=== PATIENT | female | born 1955 | race Caucasian/White ===

== ENCOUNTER → 2017-05-14 | Outpatient (CLI) | payer BC, OTHER | LOC: CIMAGING 08:47 | PROVIDERS: ATTEND Internal Medicine | DX: Z12.31 Encounter for screening mammogram for malignant neoplasm of breast (principal) | CPT/HCPCS: G0202 ==

== ENCOUNTER 2017-07-30 05:50 | Inpatient (IN) | payer BC, OTHER ==
--- NOTE | 2017-07-18 23:03 | GHP ---
[f rep st] HISTORY AND PHYSICAL DATE OF ADMISSION: 07/30/2017 CHIEF COMPLAINT: Right knee pain. HISTORY OF PRESENT ILLNESS: The patient is a 61-year-old female with a long history of right knee pa in worsening with use and with time despite multiple conservative measures. She wishes to have surge ry in order to resolve the problem. ALLERGIES: She is allergic to adhesives and cephalexin. CURRENT MEDICATIONS: Include insulin, bupropion, buspirone, cabergoline, citalopram, gabapentin, Arnulfo tus, liothyronine, lisinopril, metformin, NovoLog, simvastatin, Synthroid, and albuterol inhaler as n eeded. PAST MEDICAL HISTORY: Include diabetes, reflux, hypertension, and thyroid problems. PAST SURGICAL HISTORY: Includes a right knee arthroscopy, cholecystectomy, and a right shoulder surg es. SOCIAL HISTORY: She has never been a smoker, and she takes no alcohol. PHYSICAL EXAMINATION: EYES: Pupils equal, round, reactive to light. CHEST: Clear to auscultation. HEART: Regular rate and rhythm. ABDOMEN: Soft and nontender. EXTREMITIES: Right knee has a mil d varus deformity with some spilling noted to the medial compartment. She has an effusion to the kne e. IMAGING DATA: X-ray exam reveals significant osteoarthritic changes to the knee. PLAN: She is to be taken to the operating room where she is to undergo a right total knee arthroplas ty. /[id number]/MODL
[2017-07-30] MEDS ORDERED: ROPIVACAINE 0.2% 80 MG, EPINEPHrine 0.2 MG, KETOROLAC TROMETHAMINE 30 MG, morphINE 10 M... IU ONE (06:00)
[2017-07-30] MEDS ORDERED: TRANEXAMIC ACID 3,000 MG in NS 50 ML IRR ONE (06:00)
[2017-07-30] MEDS ORDERED: LR 1,000 ML IV SCH ×2 (06:00→09:30)
[2017-07-30] MEDS ORDERED: ACETAMINOPHEN 500 MG TAB PO ONE (06:00)
[2017-07-30] MEDS ORDERED: CLINDAMYCIN 900 MG/DEXTROSE 50 ML IV ONE (06:00)
[2017-07-30] MEDS ORDERED: LIDOCAINE 1% 2 ML INJ ONE (06:06)
[2017-07-30] MEDS ORDERED: LR 1,000 ML IV ONE (06:11)
[2017-07-30] MEDS ORDERED: LIDOCAINE 1% 2 ML INJ ID PRN (06:11)
[2017-07-30] MEDS ORDERED: THROMBIN (BOVINE) 5,000 UNIT VIAL TP ONE ×2 (06:37→08:07)
[2017-07-30] MEDS ORDERED: CALCIUM CHLORIDE 1 GM/10 ML INJ ONE ×2 (06:37→08:07)
[2017-07-30] MEDS ORDERED: BACITRACIN 50,000 UNITS/10 ML SYR IRR ONE (06:38)
[2017-07-30] MEDS ORDERED: POLYMYXIN B SULFATE 500,000 UNIT/10 ML SYR IRR ONE (06:38)
[2017-07-30] MEDS ORDERED: BUPIVACAINE/EPI 0.5% 30 ML SDV ONE (06:38)
[2017-07-30] MEDS ORDERED: TRANEXAMIC ACID 3,000 MG/50 ML BAG IRR ONE (06:39)
[2017-07-30] MEDS ORDERED: MIDAZOLAM 2 MG/2 ML VIAL IVP ONE (07:00)
--- NOTE | 2017-07-30 07:00 | PDANEPAE ---
ANE History of Present Illness Knee pain ANE Past Medical History - Cardiovascular History Hx Hypertension: Yes Hx Arrhythmias: No Hx Coronary Artery / Peripheral Vascular Disease: No Hx CHF / Valvular Disease: Yes Cardiovascular History Comment: ASYMPTOMATIC. HIGH CHOL. MURMUR. AORTIC VALVE DISORDER REGURG. NO CP - Pulmonary History Hx COPD: No Hx Asthma/Reactive Airway Disease: Yes Hx Recent Upper Respiratory Infection: No Hx Oxygen in Use at Home: No Hx Sleep Apnea: Yes Sleep Apnea Screening Result - Last Documented: Positive Pulmonary History Comment: ASTHMA- USE INHLER, TRIGGERS W/URI. DENIES SOB W STAIRS. 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 HYPOTHYROID. 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 ANXIETY - Cancer History Hx Cancer: No - Congenital Disorder History Hx Congenital Disorders: Yes Congenital History Comment: EXTRA THUMB BEN- REMOVED AT AGE 5 - GI History Hx Gastrointestinal Disorders: Yes Gastrointestinal History Comment: ACID REFLUX - Other Health History Other Health History: PAST LOW FERRITIN LEVEL - HAD IRON INFUSIONS LAST OCT 2016 - Chronic Pain History Chronic Pain: No - Surgical History Prior Surgeries: SPLEENECTOMY - TUMOR/HEANGIOMA. R KNEE ARTHROSCOPY. R SHOULDER 01/03/11. OTTO LAP. EBN THUMBS-EXTRA THUMB REM CHILD ANE Review of Systems Review of Systems: - Exercise capacity METS (RN): 4 METS ANE Patient History - Allergies Allergies/Adverse Reactions: cephalexin [Cephalexin] Allergy (Intermediate, Verified 05/22/16 18:41) Rash adhesive tape Allergy (Mild, Verified 07/02/17 16:06) Rash HAYFEVER Allergy (Mild, Uncoded 05/22/16 18:41) Other-Enter Comments - Home Medications Home medications: home medication list seen and reviewed Home Medications: Calcium Carb W/Vit D [Calcium Carb W/Vit D 500/200 (*)] 500 mg PO DAILY [Last Taken 07/20/17] Herbals/Supplements -Info Only 1 ea PO DAILY 02/29/16 [Last Taken 07/20/17] Multivitamins [Multivitamin (*)] 1 each PO DAILY 02/29/16 [Last Taken 07/20/17] Upperco-3 Fatty Acids [Fish Oil 1000 mg (*)] 2,000 mg PO BID 02/29/16 [Last Taken 07/20/17] Simvastatin 10 mg PO DAILY 02/29/16 [Last Taken 07/30/17] FEXOFENADINE HCL 180 mg PO DAILY 07/02/17 [Last Taken Unknown] Gabapentin [Neurontin 100 MG (*)] 100 mg PO HS 07/02/17 [Last Taken 07/29/17] Ibuprofen [Motrin (*)] 800 mg PO TID 07/02/17 [Last Taken 07/20/17] Insulin Aspart Novolog 70/30 [Novolog Mix 70/30 (*)] 1 - 5 units SC TID [Last Taken 07/29/17] Insulin Glargine [Lantus 100 UNITS/ML (*)] 30 units SC HS 07/02/17 [Last Taken 07/29/17] Lansoprazole [Prevacid] 15 mg PO DAILY AT 6PM 07/02/17 [Last Taken 07/29/17] Mirtazapine [Remeron] 22.5 mg PO HS 07/02/17 [Last Taken 07/29/17] - NPO status NPO Since - Liquids (Date): 07/29/17 NPO Since - Liquids (Time): 21:00 NPO Since - Solids (Date): 07/29/17 NPO Since - Solids (Time): 19:00 - Anes Hx Anes Hx: no prior problems - Smoking Hx Smoking Status: Never smoked - Family Anes Hx Family Hx Anesthesia Complications: NONE ANE Labs/Vital Signs - Vital Signs Blood Pressure: 157/83 Heart Rate: 82 Respiratory Rate: 16 O2 Sat (%): 95 Height: 162.56 cm Weight: 77.111 kg ANE Physical Exam - Airway Neck exam: FROM Mallampati Score: Class 1 Mouth exam: normal dental/mouth exam - Pulmonary Pulmonary: no respiratory distress, clear to auscultation - Cardiovascular Cardiovascular: regular rate and rhythym - ASA Status ASA Status: III ANE Anesthesia Plan Anesthesia Plan: MAC, spinal Regional Anesthesia: adductor canal FNB
[2017-07-30] MEDS ORDERED: fentaNYL 100 MCG/2 ML INJ ONE (07:05)
[2017-07-30] MEDS ORDERED: PROPOFOL/EMULSION 500 MG/50 ML BOTTLE IV ONE (07:06)
--- NOTE | 2017-07-30 07:09 | PDHPUP ---
History & Physical Update H&P update statement: This history and physical update is based on an assessment of the patient which was completed after admission or registration (within 24 hours), but prior to the surgery/procedure. H&P update: H&P reviewed & patient examined, no change in patient's condition since H&P completed
[2017-07-30] MEDS ORDERED: ONDANSETRON 4 MG/2 ML VIAL ONE (07:57)
[2017-07-30] MEDS ORDERED: ROPIVACAINE HCL 150 MG/30 ML INJ ONE (08:45)
[2017-07-30] MEDS ORDERED: PROPOFOL 200 MG/20 ML VIAL ONE (08:51)
[2017-07-30] MEDS ORDERED: HYDROmorphONE/DILAUDID 1 MG/ML INJ IVP PRN (09:09)
[2017-07-30] MEDS ORDERED: ONDANSETRON 4 MG/2 ML VIAL IVP PRN ×2 (09:09→09:14)
[2017-07-30] MEDS ORDERED: NALOXONE HCL 0.4 MG/ML INJ IVP PRN (09:09)
[2017-07-30] MEDS ORDERED: fentaNYL 100 MCG/2 ML INJ IVP PRN (09:09)
[2017-07-30] MEDS ORDERED: LACTULOSE 20 GM/30 ML UDCUP PO PRN (09:14)
[2017-07-30] MEDS ORDERED: PROMETHAZINE HCL 25 MG SUPPR PR PRN (09:14)
[2017-07-30] MEDS ORDERED: TAPENTADOL HCL 50 MG TAB PO PRN (09:14)
[2017-07-30] MEDS ORDERED: PROMETHAZINE HCL 25 MG/ML INJ IVP PRN (09:14)
[2017-07-30] MEDS ORDERED: MAGNESIUM HYDROXIDE 30 ML UDCUP PO PRN (09:14)
[2017-07-30] MEDS ORDERED: ONDANSETRON DISINTEGRATING 4 MG TAB PO PRN (09:14)
[2017-07-30] MEDS ORDERED: METOCLOPRAMIDE 10 MG/2 ML VIAL IVP PRN (09:14)
[2017-07-30] MEDS ORDERED: diphenhydrAMINE 25 MG CAP PO PRN (09:14)
[2017-07-30] MEDS ORDERED: POLYETHYLENE GLYCOL 3350 17 GM PKT PO PRN (09:14)
[2017-07-30] MEDS ORDERED: DIPHENOXYLATE/ATROPINE LOMOTIL 1 TAB PO PRN (09:14)
[2017-07-30] MEDS ORDERED: TEMAZEPAM 15 MG CAP PO PRN (09:14)
[2017-07-30] MEDS ORDERED: BISACODYL 10 MG SUPP PR PRN (09:14)
--- NOTE | 2017-07-30 09:14 | POSTOPPROG ---
Post Op Note Date of Operation: 07/30/17 Surgeon: Rosana Pacheco Rate Clerk: abena Anesthesiologist: ester Anesthesia: Epidural, IV Sedation Pre-op Diagnosis: r knee oa Procedure: r tkr Inf/Abcess present in the surg proc area at time of surgery?: No Depth: Deep Incisional (Fascial) EBL: 100-500
--- NOTE | 2017-07-30 09:29 | POSTANESTH ---
Post Anesthetic Evaluation Cardiovascular Status: Normal, Stable Respiratory Status: Normal, Stable Level of Consciousness/Mental Status: Can Participate in Eval Pain Control: Adequate, Prn Tx Ordered Nausea/Vomiting Control: Adequate, Prn Tx Ordered Complications Possibly Related to Anesthesia: None Noted (Adductor cannal block done in recovery.)
--- NOTE | 2017-07-30 10:33 | GOP ---
[f rep st] OPERATIVE REPORT DATE OF OPERATION: 07/30/2017 SURGEON: Rosana Pacheco MD ANESTHESIA: Epidural nerve block plus IV sedation. PREOPERATIVE DIAGNOSIS: Right knee osteoarthritis. POSTOPERATIVE DIAGNOSIS: Right knee osteoarthritis. PROCEDURE PERFORMED: Right total knee arthroplasty. FINDINGS: INDICATIONS: This is a 61-year-old female with a long history of right knee pain worsening with use and with time, despite multiple conservative measures to include viscus supplementation, anti-inflamm atories and bracing. She wishes to have surgery in order to resolve the problem. DESCRIPTION OF PROCEDURE: The patient was brought to the operating room after the right side had bee n identified as the correct side by the patient, nurse and physician. Once in the operating room, sukhjinder bear was given an epidural nerve block plus an adductor nerve block, per surgeon's request. Once placed , she was placed supine on the operating room table. She had a tourniquet placed around the upper po rtion of the right thigh, with the right lower extremity sterilely prepped and draped in the usual fa shion using GSI solution. Once prepped and draped, the limb was exsanguinated and the tourniquet inf lated to 250 mmHg. A linear incision was made on the anterior portion of the knee 1 handbreadth above and below the james lla. With sharp dissection, carried down through the skin and subcutaneous layers, with bleeding con trolled using electrocautery. A medial parapatellar incision was made through the extensor mechanism , with the patella brought to the side but not everted. The knee was brought up to 90 degrees of fle xion. The ACL as well as the medial and lateral meniscus were removed. The first custom made jig wa s placed on the distal end of the femur, noted to fit securely and lug holes were drilled for that co mponent. This was then removed and the second jig was placed on the distal end of the femur. Drill holes were made in the distal end of the femur and the end cutting block was pinned into place. The jig was removed with the cutting block left in place. An oscillating saw was used to remove the dist al end of the femur until achieving a flat cut. The prior pin holes that had been made in the distal end of the femur had pins placed back into them. A third jig was placed on the distal cut surface o f the femur. It was pinned into place, and the anterior and posterior cuts, as well as an anterior c hamfer cut, were made. Lug holes were drilled in the distal end of the femur. The jig was removed. The next jig was placed within the lug holes associated with the distal end of the femur. Once held securely in place, the posterior chamfer cuts were made. The femoral trial was put into place. The knee was then able to achieve full extension. Therefore, the trial was removed. Attention was turn ed to the tibia. The knee was brought into maximal flexion with the tibia subluxed anteriorly. The feet of the tibial cutting guide were marked with a pen placed on the proximal portion of the tibia. The areas were at tached to the cartilage. The cartilage was removed using curette until achieving contact with the maci ne. The jig was then placed back onto the proximal tibia and noted to have good alignment, with good posterior slope. It was then pinned into place. An oscillating saw was then used to remove the pro ximal portion of the tibia. The tibial trial as well as the femoral trial were put back in place. T he knee was able to achieve full extension. Therefore, the trials were removed. The knee was zacarias t to maximal flexion. The custom made sizing jig was put into place. It was pinned into place and n oted to fit securely. A medullary guide was placed within the tibial jig. The medullary drill was p assed through this. The drill was removed and the keel punch passed through the trial. The trial wa s then completely removed. The knee was brought to full extension. The patella was then everted and held in place with towel clamps. It was measured to be 20 mm in thickness. The oscillating saw was used to remove the posterior portion of the patella, leaving 15 mm of bone. Multiple sizes were tri aled on the cut surface of bone. Noted that a 29 mm patella was seen to fit best. Therefore, lug ho les were drilled for a 29 mm patella. All cut surfaces of bone were then thoroughly irrigated with a n antibiotic solution using pulsatile lavage while cement was being mixed. Once cement was doughy, i t was placed in the proximal portion of the tibia and a custom made conformist tibial component was p ut into place, with excess cement removed using a Ecru elevator. Cement was then placed on the post erior skids of the custom made conformist femoral component, with cement placed on the distal anterio r portion of the bone. The femoral component was put into place and excess cement removed using a Fr eer elevator. Trial liners were placed on the tibial tray and the knee was brought to full extension in order to pressurize cement. Cement was then placed on the posterior portion of the patella and a 29 mm patellar button was clamped into place with excess cement removed using a Ecru elevator. Onc e cement had hardened, clamps were removed from the patella and it was noted to align well with the f emoral component. Any excess cement that was found was removed using combination of osteotome and ro ngeur. Multiple trials were placed in the tibial tray. Once finding adequate stability with good ex tension, a size A lateral tibial insert was placed in the lateral portion of the tibial tray and an 8 mm medial insert was put into the tibial tray. Once snapped into place, the tourniquet was deflated at 49 minutes. Bleeding was controlled using el ectrocautery. A joint cocktail had been injected in the posterior capsule along the periosteum of th e femur and the tibia. Tranexamic acid was then irrigated through the wound in order to help control bleeding. The wound was then closed using 0 Vicryl suture in a [id number]-[id number] type stitch for the extensor mechanism, with plasma gel placed intra-articularly. Zero Vicryl and 2-0 Vicryl suture were used to close the subcutaneous layers, with 30 mL of Marcaine infused around the skin incision. And a 3-0 V-Loc suture in a running subcuticular stitch was used to close the skin. The wound was dress ed with Steri-Strips, Xeroform, 4x4s wrapped in Kerlix. The leg was completely undraped in the opera ting room, the tourniquet removed from the thigh and an Hermelindo wrap placed around the knee. The patient was then transferred onto a stretcher and sent to the recovery room in a good condition. TOURNIQUET TIME: 49 minutes. /[id number]/MODL
[2017-07-30] MEDS: ACETAMINOPHEN 325 MG TAB PO SCH ×2 (12:28→17:53)
[2017-07-30] MEDS: traMADol 50 MG TAB PO SCH ×2 (12:28→17:53)
[2017-07-30] MEDS: KETOROLAC 30 MG/1 ML SDV IVP SCH ×2 (12:28→17:51)
[2017-07-30] MEDS: INSULIN LISPRO 100 UNIT/ML SC SCH ×3 (13:44→18:05)
[2017-07-30] MEDS: oxyCODONE IR 5 MG TAB PO PRN ×3 (14:18→17:53)
[2017-07-30] MEDS ORDERED: VANCOMYCIN HCL/NORMAL SALINE 250 ML IV ONE (16:00)
[2017-07-30] MEDS ORDERED: INSULIN ASPART NovoLOG 70/30 100 UNITS/ML SYR SC SCH (16:00)
[2017-07-30] MEDS: busPIRone 15 MG TAB PO SCH ×2 (16:13→20:49)
[2017-07-30] MEDS: PANTOPRAZOLE SODIUM 40 MG TAB PO SCH (17:53)
[2017-07-30] MEDS: metFORMIN HCL 500 MG TAB PO SCH (17:53)
[2017-07-30] MEDS ORDERED: NON-FORMULARY NEW DRUG (Insulin Aspart [Novolog Flexpen] 0 UNIT) SQ SCH (18:00)
[2017-07-30] MEDS ORDERED: NON-FORMULARY NEW DRUG (Lansoprazole [Prevacid] 15 MG) PO SCH (18:00)
[2017-07-30] MEDS: FAMOTIDINE 20 MG TAB PO SCH (20:44)
[2017-07-30] MEDS: GABAPENTIN 100 MG CAP PO SCH (20:44)
[2017-07-30] MEDS: SENNOSIDES/DOCUSATE SODIUM TAB PO SCH (20:44)
[2017-07-30] MEDS: INSULIN GLARGINE 100 UNITS/ML SYRINGE SC SCH (20:46)
[2017-07-30] MEDS: FLUTICASONE NASAL 120 SPRAYS/16 GM MDI EACHNARE SCH (20:46)
[2017-07-30] MEDS: LIOTHYRONINE SODIUM 25 MCG TAB PO SCH (20:47)
[2017-07-30] MEDS: MIRTAZAPINE 15 MG TAB PO SCH (20:49)
[2017-07-30] MEDS ORDERED: NON-FORMULARY NEW DRUG (Mirtazapine [Remeron] 22.5 MG) PO SCH (21:00)
[2017-07-31] MEDS: traMADol 50 MG TAB PO SCH ×5 (00:24→23:17)
[2017-07-31] MEDS: KETOROLAC 30 MG/1 ML SDV IVP SCH ×5 (00:24→23:18)
[2017-07-31] MEDS: ACETAMINOPHEN 325 MG TAB PO SCH ×5 (00:24→23:17)
[2017-07-31 04:51] LABS: HEMATOCRIT 35.2 % (38.0-47.0); HEMOGLOBIN 11.9 g/dL (12.6-16.3)
[2017-07-31] MEDS: LEVOTHYROXINE 125 MCG TAB PO SCH (06:00)
[2017-07-31] MEDS: INSULIN LISPRO 100 UNIT/ML SC SCH ×3 (08:20→17:56)
[2017-07-31] MEDS: oxyCODONE IR 5 MG TAB PO PRN ×4 (08:20→20:32)
[2017-07-31] MEDS: buPROPion XL 150 MG TAB PO SCH (08:21)
[2017-07-31] MEDS: SENNOSIDES/DOCUSATE SODIUM TAB PO SCH ×2 (08:21→20:32)
[2017-07-31] MEDS: CITALOPRAM 20 MG TAB PO SCH (08:22)
[2017-07-31] MEDS: busPIRone 15 MG TAB PO SCH ×3 (08:22→22:20)
[2017-07-31] MEDS: CETIRIZINE 10 MG TAB PO SCH (08:22)
[2017-07-31] MEDS: FAMOTIDINE 20 MG TAB PO SCH ×2 (08:22→20:31)
[2017-07-31] MEDS: LIOTHYRONINE SODIUM 25 MCG TAB PO SCH ×2 (08:31→20:30)
[2017-07-31] MEDS: LISINOPRIL 20 MG TAB PO SCH (08:32)
[2017-07-31] MEDS: metFORMIN HCL 500 MG TAB PO SCH ×2 (08:32→18:20)
[2017-07-31] MEDS: PRAVASTATIN SODIUM 20 MG TAB PO SCH (08:32)
[2017-07-31] MEDS: RIVAROXABAN 10 MG TAB PO SCH (08:32)
[2017-07-31] MEDS: CYCLOBENZAPRINE 10 MG TAB PO PRN (09:41)
--- NOTE | 2017-07-31 14:25 | SOAPPROG ---
SOAP Progress Note Assessment/Plan: Assessment: Plan: doing well, as planned 07/31/17 14:24 Subjective: doing well pain controlled Objective: Vital Signs Temp Pulse Resp BP Pulse Ox 36.9 C 74 16 116/55 L 95 07/31/17 11:44 07/31/17 11:44 07/31/17 11:44 07/31/17 11:44 07/31/17 11:44 Laboratory Results 07/31/17 04:22 07/30/17 07/31/17 08/01/17 05:59 05:59 05:59 Intake Total 2225 Output Total 750 Balance 1475 dressing cdi, calf nt, NvI - Time Spent With Patient Time Spent With Patient: 15 - Pending Discharge Pending Discharge Within 24 Hours: No Pending Discharge Within 48 Hours: Yes Pending Discharge Date: 08/02/17 Pending Discharge Time: 11:00 ICD10 Worksheet Patient Problems: Problems Problem Status Onset Splenic mass Acute
--- NOTE | 2017-07-31 15:38 | ASMTCMCOM ---
CM Note CM Note Notes: Pt had planned surgery, has at home. PT rec [facility], pt agreeable and referral sent to [facility]. Date Signed: 07/31/2017 03:38 PM Electronically Signed By:NADER Lisa
[2017-07-31] MEDS: PANTOPRAZOLE SODIUM 40 MG TAB PO SCH (18:20)
[2017-07-31] MEDS: MIRTAZAPINE 15 MG TAB PO SCH (20:31)
[2017-07-31] MEDS: GABAPENTIN 100 MG CAP PO SCH (20:31)
[2017-07-31] MEDS: FLUTICASONE NASAL 120 SPRAYS/16 GM MDI EACHNARE SCH (22:22)
[2017-07-31] MEDS: INSULIN GLARGINE 100 UNITS/ML SYRINGE SC SCH (22:23)
[2017-08-01 05:01] LABS: HEMATOCRIT 34.2 % (38.0-47.0); HEMOGLOBIN 11.6 g/dL (12.6-16.3)
[2017-08-01] MEDS: ACETAMINOPHEN 325 MG TAB PO SCH ×2 (05:09→12:48)
[2017-08-01] MEDS: KETOROLAC 30 MG/1 ML SDV IVP SCH ×2 (05:10→12:48)
[2017-08-01] MEDS: traMADol 50 MG TAB PO SCH ×2 (05:10→10:33)
[2017-08-01] MEDS: LEVOTHYROXINE 125 MCG TAB PO SCH (05:11)
[2017-08-01 07:58] VITALS: RESP 16
[2017-08-01] MEDS: RIVAROXABAN 10 MG TAB PO SCH (08:51)
[2017-08-01] MEDS: FAMOTIDINE 20 MG TAB PO SCH (08:51)
[2017-08-01] MEDS: LISINOPRIL 20 MG TAB PO SCH (08:51)
[2017-08-01] MEDS: PRAVASTATIN SODIUM 20 MG TAB PO SCH (08:52)
[2017-08-01] MEDS: buPROPion XL 150 MG TAB PO SCH (08:52)
[2017-08-01] MEDS: busPIRone 15 MG TAB PO SCH (08:52)
[2017-08-01] MEDS: SENNOSIDES/DOCUSATE SODIUM TAB PO SCH (08:53)
[2017-08-01] MEDS: metFORMIN HCL 500 MG TAB PO SCH (08:53)
[2017-08-01] MEDS: oxyCODONE IR 5 MG TAB PO PRN ×3 (08:53→14:55)
[2017-08-01] MEDS: CETIRIZINE 10 MG TAB PO SCH (08:54)
[2017-08-01] MEDS: LIOTHYRONINE SODIUM 25 MCG TAB PO SCH (08:54)
[2017-08-01] MEDS: CITALOPRAM 20 MG TAB PO SCH (08:54)
[2017-08-01] MEDS: CYCLOBENZAPRINE 10 MG TAB PO PRN (10:34)
[2017-08-01 11:25] VITALS: BP 165/79; PULSE 88; TEMP 99; O2SAT 95
--- NOTE | 2017-08-01 12:02 | SOAPPROG ---
SOAP Progress Note Assessment/Plan: Assessment: Plan: d/c home today, with PT 07/31/17 14:24 08/01/17 12:01 Subjective: Had some severe pain this AM doing better now, feels ready to go home. Objective: Vital Signs Temp Pulse Resp BP Pulse Ox 37.2 C 88 16 165/79 H 95 08/01/17 11:14 08/01/17 11:14 08/01/17 11:14 08/01/17 11:14 08/01/17 11:14 Laboratory Results 08/01/17 04:40 07/31/17 08/01/17 08/02/17 05:59 05:59 05:59 Intake Total 2225 300 Output Total 750 600 Balance 1475 -300 Wound CDI, calf NT, Nvi - Time Spent With Patient Time Spent With Patient: 15 - Pending Discharge Pending Discharge Within 24 Hours: Yes Pending Discharge Within 48 Hours: No Pending Discharge Date: 08/02/17 Pending Discharge Time: 11:00 ICD10 Worksheet Patient Problems: Problems Problem Status Onset Splenic mass Acute
[2017-08-01] MEDS: INSULIN LISPRO 100 UNIT/ML SC SCH ×2 (12:04→12:46)
--- NOTE | 2017-08-01 12:41 | PDIAF ---
- Diagnosis Code Status: Full Code - Medication Management Discharge Medications: Medications to Continue on Transfer Calcium Carb W/Vit D [Calcium Carb W/Vit D 500/200 (*)] 500 mg PO DAILY [Last Taken 07/20/17] Herbals/Supplements -Info Only 1 ea PO DAILY 02/29/16 [Last Taken 07/20/17] Multivitamins [Multivitamin (*)] 1 each PO DAILY 02/29/16 [Last Taken 07/20/17] [place]-3 Fatty Acids [Fish Oil 1000 mg (*)] 2,000 mg PO BID 02/29/16 [Last Taken 07/20/17] Simvastatin 10 mg PO DAILY 02/29/16 [Last Taken 07/30/17] Cabergoline [Dostinex (*)] 0.5 mg PO MOFR@0800 #0 tab 03/08/16 [Last Taken 07/29] Citalopram [CeleXA 20 MG] 40 mg PO DAILY #0 tab 03/08/16 [Last Taken 07/30/17] Fluticasone Nasal [Flonase Nasal Pickerel] 2 sprays EACHNARE HS #0 mdi 03/08/16 [ Last Taken 07/29/17] Levothyroxine [Synthroid 125 mcg (*)] 125 mcg PO DAILY06 #0 tab 03/08/16 [Last Taken 07/30/17] Liothyronine Sodium [Cytomel 25 mcg (*)] 12.5 mcg PO BID #0 tab 03/08/16 [Last Taken Unknown] Lisinopril [Zestril 20 mg (*)] 20 mg PO DAILY #0 tab 03/08/16 [Last Taken ] buPROPion XL [Wellbutrin 150mg XL] 450 mg PO DAILY #0 tab 03/08/16 [Last Taken 07/30/17] busPIRone [Buspar (*)] 15 mg PO TID #0 tab 03/08/16 [Last Taken 07/30/17] metFORMIN HCL [Glucophage 500 mg (*)] 1,000 mg PO BIDMEAL #0 tab 03/08/16 [Last Taken 07/28/17] FEXOFENADINE HCL 180 mg PO DAILY 07/02/17 [Last Taken Unknown] Gabapentin [Neurontin 100 MG (*)] 100 mg PO HS 07/02/17 [Last Taken 07/29/17] Ibuprofen [Motrin (*)] 800 mg PO TID 07/02/17 [Last Taken 07/20/17] Insulin Glargine [Lantus 100 UNITS/ML (*)] 30 units SC HS 07/02/17 [Last Taken 07/29/17] Lansoprazole [Prevacid] 15 mg PO DAILY AT 6PM 07/02/17 [Last Taken 07/29/17] Mirtazapine [Remeron] 22.5 mg PO HS 07/02/17 [Last Taken 07/29/17] Insulin Aspart [Novolog Flexpen] 1 - 5 unit SQ TIDMEAL 07/30/17 [Last Taken Unknown] Rivaroxaban [Xarelto 10mg (*)] 10 mg PO DAILY #0 tab 08/01/17 [Last Taken Unknown] oxyCODONE IR [Oxycodone Ir (*)] 5 - 10 mg PO Q3HRS PRN tab 08/01/17 [Last Taken Unknown] traMADol [Ultram 50 mg (*)] 50 mg PO Q6HRS tab 08/01/17 [Last Taken Unknown] Discharge Medications: Refer to the Discharge Home Medication list for PRN reason. - Orders Services needed: Home Care, Physical Therapy Home Care Face to Face: I certify that this patient was under my care and that I had the required [id number] encounter meeting the encounter requirements on the discharge day. My findings support the fact that the patient is homebound as defined in Home Care Face to Face Continued: CMS Chapter 7 Medicare Benefits Manual 30.1.1 , The condition of the patient is such that there exists a normal inability to leave home and consequently, leaving home would require a considerable and taxing effort. Diet Recommendation: no restrictions on diet Diet Texture: Regular Texture Diet - Follow Up Care Current Providers and Referrals: Dayan Jewell MD [Primary Care Provider] -
--- NOTE | 2017-08-01 15:34 | ASDISCHSUM ---
Discharge Information Plan Status:Home with Home Health Medically Cleared to Leave: Discharge Date:08/01/2017 03:00 PM D/C Disposition:Home Health Service ADT D/C Disposition:Home, Routine, Self-Care Projected Discharge Date:08/01/2017 11:00 AM Transportation at D/C: Discharge Delay Reason: Follow-Up Date:08/01/2017 11:00 AM Discharge Slot: Final Diagnosis: Placement Information Referral Type:*Home Health Care Services Referral ID:[id number] Provider Name:[facility] [place] Address 1:[address] [address] Phone Number: Address 2: Fax Number: City:[place] Selection Factors: State:[place] Patient Contact Information Contact Name:KIKA Relationship: Address:[address] [place] [address] City:[facility] Phone: State/Zip Code:[place] [address] Email: Financial Information Financial Class:HMO and PPO Plans Primary Plan Desc: OUT OF STATE PPO Primary Plan Number:[id number] Secondary Plan Desc:MEDICARE INPATIENT Secondary Plan Number:[id number] Assessment Information [facility] CM Progress Note CM Note CM Note Notes: Pt had planned surgery, has at home. PT rec [facility], pt agreeable and referral sent to [facility]. Date Signed: 07/31/2017 03:38 PM Electronically Signed By:NADER Lisa [facility] CM Progress Note CM Note CM Note Notes: Pt medically stable for d/c w [facility]. Orders sent. Date Signed: 08/01/2017 03:33 PM Electronically Signed By:NADER Lisa Intervention Information Intervention Type:*IM-Signed Date of Service:08/01/2017 02:16 PM Patient Type:Inpatient Staff Member:Senait Zhou Hours: Discipline: Severity: Comment:
--- NOTE | 2017-08-01 15:34 | ASMTCMCOM ---
CM Note CM Note Notes: Pt medically stable for d/c w [facility]. Orders sent. Date Signed: 08/01/2017 03:33 PM Electronically Signed By:NADER Lisa
[2017-08-02] MEDS ORDERED: CABERGOLINE 0.5 MG TAB PO SCH (08:00)
== END 2017-08-01 15:00 | disposition home or self-care (01) | DRG 470 ==
LOC: F3N 05:50
PROVIDERS: ADMIT Orthopaedic Surgery; ATTEND Orthopaedic Surgery
PROC: 0SRC0J9 Replacement of Right Knee Joint with Synthetic Substitute, Cemented, Open Approach (ICD-10-PCS; principal; 2017-07-30 07:15)
DX: M17.11 Unilateral primary osteoarthritis, right knee (principal); E11.9 Type 2 diabetes mellitus without complications; E03.9 Hypothyroidism, unspecified; K21.9 Gastro-esophageal reflux disease without esophagitis
CPT/HCPCS: 97110-GP; 97116-GP; 97161-GP; 97165-GO; 97530-GP; 97535-GO; C1713; G8978-GP-CJ; G8979-GP-CI; G8980-GP-CI; G8984-GO-CJ; G8985-GO-CI; G8988-GO-CI; G8989-GO-CI; J0171; J1815; J1885; J2250; J2405; J2704; J2795; J3010; J3370; J8515

== ENCOUNTER → 2019-02-26 | Outpatient (CLI) | payer BC, OTHER | LOC: EMCIMAGING 09:32 | PROVIDERS: ATTEND Internal Medicine | DX: Z00.00 Encounter for general adult medical examination without abnormal findings (principal); M51.34 Other intervertebral disc degeneration, thoracic region | CPT/HCPCS: 71046-PN ==